=== PATIENT | female | born 1960 | race Two or more races ===

== ENCOUNTER → 2022-06-03 | Outpatient (CLI) | payer OTHER ==
[2022-06-03 13:53] LABS: Urine Bacteria NONE SEEN /hpf (None Seen); Urine Blood Negative /uL (Negative); Urine Mucus FEW (None Seen); Urine Specific Gravity 1.014 (1.001-1.035); Urine WBC 2 /hpf (0 - 5)
== END | disposition home or self-care (01) ==
LOC: LAB 13:09
PROVIDERS: ATTEND Obstetrics & Gynecology
DX: Z01.419 Encounter for gynecological examination (general) (routine) without abnormal findings (principal)
CPT/HCPCS: 81001; 87086

== ENCOUNTER 2022-12-03 08:44 | Day surgery (SDC) | payer OTHER ==
[2022-12-01 15:25] LABS: Basophils # (auto) 0 10 ^3/uL (0-0.2); Basophils % (auto) 0.3 % (0.0-2.0); Eosinophils # (auto) 0 10 ^3/uL (0-0.8); Eosinophils % (auto) 1.4 % (0.0-7.0); Hematocrit 39.3 % (36.0-46.0); Hemoglobin 13.1 g/dL (12.2-16.2); Lymphocytes # (auto) 1.4 10 ^3/uL (0.4-5.4); Lymphocytes % (auto) 38.5 % (10.0-50.0); Mean Corpuscular Hgb Conc. 33.4 g/dL (32.0-36.0); Mean Corpuscular Volume 95.8 fL (80.0-100.0); Monocytes # (auto) 0.2 10 ^3/uL (0-1.3); Monocytes % (auto) 5.9 % (0.0-12.0); Neutrophils # (auto) 1.9 10 ^3/uL (1.6-8.6); Neutrophils % (auto) 53.9 % (37.0-80.0); Nucleated Red Blood Cells % 0.2 %; White Blood Cell 3.6 10^3/uL (4.4-10.8)
[2022-12-01 15:46] LABS: INR 0.98 (0.9-1.15); Partial Thromboplastin Time 31.6 sec (24.6-33.4)
[2022-12-01 15:48] LABS: BUN/Creatinine Ratio 23.5; Calcium 9.3 mg/dL (8.5-10.1); Potassium 4.5 mmol/L (3.5-5.1)
[2022-12-01 15:50] LABS: Bilirubin, Total 0.4 mg/dL (0.2-1.0); Total Protein 7.6 g/dL (6.4-8.2)
[~2022-12-03] VITALS: Ht 170.2 cm; Wt 59.0 kg
[2022-12-03] VITALS (7 sets, daily range): BP systolic 96–130; BP diastolic 52–72
[2022-12-03] MEDS ORDERED: VANCOMYCIN 1GM/250ML 250 ML IV ONE ×2 (09:30→09:33)
[2022-12-03] MEDS ORDERED: fentaNYL CITRATE 100 MCG/2 ML VL ONE (11:53)
[2022-12-03] MEDS ORDERED: MIDAZOLAM HCL 2MG/2ML 2ml VIAL (1mg/ml) ONE (11:53)
[2022-12-03] MEDS ORDERED: diphenhdrAMINE HCL 50 MG/1 ML VL ONE (12:07)
[2022-12-03] MEDS ORDERED: LIDOCAINE 2%HCL (LOCAL ANESTH.) INJ 10ml MDV ONE (12:12)
[2022-12-03] MEDS ORDERED: VANCOMYCIN HCL 1000 MG VL ONE (12:25)
== END 2022-12-03 16:55 | disposition home or self-care (01) ==
LOC: CATH 08:44
PROVIDERS: ATTEND Internal Medicine
DX: Z45.010 Encounter for checking and testing of cardiac pacemaker pulse generator [battery] (principal); I49.5 Sick sinus syndrome; I10 Essential (primary) hypertension; J44.9 Chronic obstructive pulmonary disease, unspecified; Z79.899 Other long term (current) drug therapy; Z20.822 Contact with and (suspected) exposure to COVID-19
CPT/HCPCS: 33228; 36415; 80053; 85025; 85610; 85730; C1785; J1200; J2001; J2250; J3010; J3370; J7030; U0003; 99152; 99153; A4565